=== PATIENT | male | born 1960 | race Caucasian/White ===

== ENCOUNTER → 2023-08-30 15:20 | Outpatient (REF) | payer OTHER, SELFPAY | LOC: PAVMRI 15:20 | PROVIDERS: ATTENDING PHYSICIAN Podiatrist Foot Surgery; FAMILY PHYSICIAN Family Medicine | DX: M79.671 Pain in right foot (principal) | CPT/HCPCS: 73718 ==

== ENCOUNTER → 2024-11-22 15:26 | Outpatient (REF) | payer OTHER, SELFPAY | LOC: DHSLP 15:26 | PROVIDERS: ATTENDING PHYSICIAN Family Medicine | DX: G47.33 Obstructive sleep apnea (adult) (pediatric) (principal); R09.02 Hypoxemia | CPT/HCPCS: 95800 ==